=== PATIENT | female | born 1945 | race Caucasian/White ===

== ENCOUNTER 2018-11-17 23:32 | Observation (INO) ==
[2018-11-18 00:21] LABS: Apearance,Urine CLEAR (Clear); Bilirubin,Urine Negative (Negative); Blood, Urine Negative (Negative); Glucose,Urine (UA) Negative (Negative); Ketones,Urine Negative (Negative); Nitrite,Urine Negative (Negative); Protein,Urine Negative; RBC,Urine <1 /HPF (0-4); Squamous Epithelial Cell,Urine Occasional /HPF (0-10); Urine Color Colorless (Yellow); Urine Specific Gravity 1.004 (1.001-1.035); Urine Urobilinogen < 2.0 EU/DL (0.2-1.0); WBC,Urine <1 /HPF (0-6)
[2018-11-18] MEDS ORDERED: NITROGLYCERIN SL 0.4 MG TABLET SL STA (00:27)
[2018-11-18] MEDS ORDERED: ASPIRIN CHEW 81 MG TABLET PO STA (00:27)
[2018-11-18 00:32] LABS: Basophils % 0.3 % (0.0-0.8); Eosinophils # 0.1 10*3/uL (0.0-0.87); Eosinophils % 1.4 % (0.00-10.9); Hematocrit 35.7 VOL% (35.7-47.0); Hemoglobin 11.6 GM/DL (12.0-16.0); Immature Granulocytes % 0.5 %; Immature Granulocytes Absolute 0.03 #; Lymphocytes # 1.9 10*3/uL (1.4-4.0); Lymphocytes % 32.3 % (21.3-54.2); Mean Corpuscular HGB Conc 32.5 GM/DL (32-36); Mean Corpuscular Hemoglobin 31 PG (27-34); Mean Corpuscular Volume 96.2 FL (87-102); Mean Platelet Volume 11.8 FL (9.6-12.0); Monocytes # 0.5 10*3/uL (0.11-0.8); Monocytes % 8.3 % (1.7-12.7); Neutrophils # 3.3 10*3/uL (1.4-7.4); Neutrophils % 57.2 % (38.7-73.9); Platelet Count 145 T/CUMM (130-400); Red Blood Count 3.71 MC/CUMM (3.8-5.5); White Blood Count 5.8 T/CUMM (4-12)
[2018-11-18 00:35] LABS: Albumin 3.5 G/DL (3.4-5.0); Bilirubin,Total 0.4 MG/DL (0.2-1.0); Calcium 9.9 MG/DL (8.5-10.1); Potassium 3.9 MMOL/L (3.5-5.1); Total Protein 6.5 G/DL (6.4-8.3)
[2018-11-18] MEDS ORDERED: NITROGLYCERIN 2% OINT 1 INCH/GM PACK TOP STA (00:36)
[2018-11-18] MEDS ORDERED: MORPHINE 4 MG/1 ML VIAL IV PRN (02:08)
[2018-11-18] MEDS ORDERED: ACETAMINOPHEN 325 MG TABLET PO PRN (02:08)
[2018-11-18] MEDS ORDERED: NITROGLYCERIN SL 0.4 MG TABLET SL PRN (02:08)
[2018-11-18] MEDS ORDERED: DOCUSATE SODIUM 100 MG CAPSULE PO PRN (02:08)
[2018-11-18] MEDS ORDERED: ONDANSETRON 4 MG/2 ML VIAL IV PRN (02:08)
[2018-11-18] MEDS ORDERED: busPIRone 5 MG TABLET PO PRN (02:11)
[2018-11-18 06:00] LABS: Risk Ratio 2.77; Thyroid Stimulating Hormone 9.29 uIU/ml (0.358-3.74); VLDL CHOLESTEROL 15.6 MG/DL
[2018-11-18] MEDS ORDERED: MELOXICAM 7.5 MG TABLET PO SCH (08:00)
[2018-11-18] MEDS ORDERED: INFLUENZA VIRUS VACCINE 0.5 ML SYRINGE IM ONE (09:00)
[2018-11-18] MEDS: ENOXAPARIN 40 MG/0.4 ML SYRINGE SUBCUT SCH (09:57)
[2018-11-18] MEDS: RALOXIFENE 60 MG TABLET PO SCH (09:58)
[2018-11-18] MEDS: CITALOPRAM 20 MG TABLET PO SCH (09:58)
[2018-11-18] MEDS: CLOPIDOGREL 75 MG TABLET PO SCH (09:58)
[2018-11-18] MEDS: ISOSORBIDE MONONITRATE 30 MG TABLET PO SCH (09:58)
[2018-11-18] MEDS: LEVOTHYROXINE 112 MCG TABLET PO SCH (09:58)
[2018-11-18] MEDS: PANTOPRAZOLE 40 MG TABLET PO SCH (09:58)
[2018-11-18] MEDS: CARVEDILOL 3.125 MG TABLET PO SCH ×2 (09:59→17:22)
[2018-11-18] MEDS: ATORVASTATIN 10 MG TABLET PO SCH (09:59)
[2018-11-18] MEDS: BENZONATATE 100 MG CAPSULE PO SCH ×2 (19:00→21:27)
[2018-11-18 20:20] LABS: Troponin I < 0.015 NG/ML (0.00-0.045)
[2018-11-18] MEDS: GABAPENTIN 100 MG CAPSULE PO SCH (21:27)
[2018-11-18] MEDS: ACETAMINOPHEN 325 MG TABLET PO SCH (21:27)
[2018-11-19 03:46] LABS: Basophils % 0.2 % (0.0-0.8); Eosinophils # 0.1 10*3/uL (0.0-0.87); Eosinophils % 2.5 % (0.00-10.9); Hematocrit 34.7 VOL% (35.7-47.0); Hemoglobin 10.8 GM/DL (12.0-16.0); Immature Granulocytes % 0.2 %; Immature Granulocytes Absolute 0.01 #; Lymphocytes # 2.4 10*3/uL (1.4-4.0); Mean Corpuscular HGB Conc 31.1 GM/DL (32-36); Mean Corpuscular Hemoglobin 30 PG (27-34); Mean Corpuscular Volume 96.9 FL (87-102); Mean Platelet Volume 11.6 FL (9.6-12.0); Monocytes # 0.4 10*3/uL (0.11-0.8); Monocytes % 9.4 % (1.7-12.7); Neutrophils # 1.5 10*3/uL (1.4-7.4); Neutrophils % 33.7 % (38.7-73.9); Platelet Count 140 T/CUMM (130-400); Red Blood Count 3.58 MC/CUMM (3.8-5.5); Red Cell Distribution Width 12.1 % (9.3-17.3); White Blood Count 4.5 T/CUMM (4-12)
[2018-11-19 04:07] LABS: Calcium 9.1 MG/DL (8.5-10.1); Osmolality,Calculated 282.3 MOS/KG (273-304); Potassium 3.8 MMOL/L (3.5-5.1)
[2018-11-19 04:09] LABS: Troponin I < 0.015 NG/ML (0.00-0.045)
[2018-11-19 05:53] LABS: Eosinophils 1 % (0-10); Lymphocytes 64 % (20-55); Segmented Neutrophils 25 % (50-85); Total Cells Counted 100
[2018-11-19 05:54] LABS: Platelet Estimate Decreased; Polychromasia Few
[2018-11-19] MEDS: BENZONATATE 100 MG CAPSULE PO SCH (08:47)
[2018-11-19] MEDS: RALOXIFENE 60 MG TABLET PO SCH (08:47)
[2018-11-19] MEDS: LEVOTHYROXINE 112 MCG TABLET PO SCH (08:47)
[2018-11-19] MEDS: GABAPENTIN 100 MG CAPSULE PO SCH (08:47)
[2018-11-19] MEDS: CITALOPRAM 20 MG TABLET PO SCH (08:47)
[2018-11-19] MEDS: CLOPIDOGREL 75 MG TABLET PO SCH (08:47)
[2018-11-19] MEDS: ISOSORBIDE MONONITRATE 30 MG TABLET PO SCH (08:48)
[2018-11-19] MEDS: ACETAMINOPHEN 325 MG TABLET PO SCH (08:48)
[2018-11-19] MEDS: PANTOPRAZOLE 40 MG TABLET PO SCH (08:48)
[2018-11-19] MEDS: ATORVASTATIN 10 MG TABLET PO SCH (08:48)
[2018-11-19] MEDS: ENOXAPARIN 40 MG/0.4 ML SYRINGE SUBCUT SCH (08:49)
[2018-11-19] MEDS: CARVEDILOL 3.125 MG TABLET PO SCH (08:50)
[2018-11-19] MEDS ORDERED: FUROSEMIDE 40 MG TABLET PO SCH (09:00)
[2018-11-19] MEDS ORDERED: OMEGA 3 ACID ETHYL ESTERS 1 GM CAPSULE PO SCH (09:00)
[2018-11-19] MEDS ORDERED: CHOLECALCIFEROL 400 UNIT TABLET PO SCH (09:00)
[2018-11-19] MEDS ORDERED: ASPIRIN EC 81 MG TABLET PO SCH (09:00)
[2018-11-19] MEDS ORDERED: cefTRIAXone 1,000 MG in SYRINGE 1 EACH IV ONE (11:30)
[2018-11-19 12:14] VITALS: BP 134/61
== END 2018-11-19 15:04 | disposition home or self-care (01) ==
LOC: EDUNIT# → EDBD → EDSEX → N.EDINP 23:32 → N.ED 23:32 → N.TELES 11-18 02:27
PROVIDERS: ADMIT Internal Medicine; ATTEND Internal Medicine